=== PATIENT | female | born 1985 | race Caucasian/White ===

== ENCOUNTER → 2017-08-06 | Outpatient (CLI) | payer OTHER ==
--- NOTE | 2017-08-06 12:49 | DIAGNOSTIC IMAGING REPORT ---
CERVICAL FLEX/EXT CSF CLINICAL HISTORY: NECK PAIN pain TECHNIQUE: Multi axial MRI acquisition. CSF flow study. COMPARISON STUDY: None FINDINGS: Normal signal characteristics of the vertebral bodies as well as intervertebral disc. Mild broad-based disc bulge C5-C6. Contact with but no significant deformity of the cervical cord. Neural foramina are patent bilaterally at all levels. With the patient in flexion as well as extension, CSF flow characteristics are considered unremarkable. Cerebellar tonsils are low-lying. IMPRESSION: 1. Normal CSF flow study. 2. Mild broad-based bulging disc C5-C6 showing contact with but no deformity of the cervical cord. 3. 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 It may contain grammatical, syntax or spelling errors. Electronically signed by: Kirill Marc M.D. 08/06/2017 12:47 PM Dictated Date/Time: 08/06/2017 12:44 PM
== END | disposition home or self-care (01) ==
LOC: C.MRIBC 10:52
PROVIDERS: ATTEND Neurological Surgery
DX: M54.2 Cervicalgia (principal); M50.222 Other cervical disc displacement at C5-C6 level